=== PATIENT | female | born 1985 | race Two or more races ===

== ENCOUNTER 2016-10-09 08:48 | Emergency (ER) | payer OTHER ==
[2016-10-09] MEDS ORDERED: oxyCODONE 5 MG TABLET PO STA (08:57)
[2016-10-09] MEDS ORDERED: oxyCODONE 5 MG TABLET ONE (09:04)
== END 2016-10-09 11:32 | disposition home or self-care (01) ==
DX: O26.891 Other specified pregnancy related conditions, first trimester (principal); R10.32 Left lower quadrant pain; O09.291 Supervision of pregnancy with other poor reproductive or obstetric history, first trimester; O23.11 Infections of bladder in pregnancy, first trimester; Z3A.08 8 weeks gestation of pregnancy; O34.11 Maternal care for benign tumor of corpus uteri, first trimester; D25.9 Leiomyoma of uterus, unspecified
CPT/HCPCS: 36415; 76801; 76830; 81001; 84702; 86900; 86901; 87077; 87086; 87181; 99283; 99284; A9270

== ENCOUNTER 2017-10-18 00:14 | Emergency (ER) | payer OTHER ==
[2017-10-18 00:25] VITALS: BP 129/82
--- NOTE | 2017-10-18 00:29 | ED Physician Documentation ---
PD HPI SKIN - Stated complaint Stated Complaint: ALLERGIC REACTION - Chief complaint Chief Complaint: Wound - History obtained from History obtained from: Patient - History of Present Illness Timing - onset: Yesterday Timing - duration: Days (1) Timing - details: Abrupt onset, Still present Location: RUE (outer deltoid area. She got injection 2 days ago in afternoon and noted redness with local swelling the next morning, and this has persisted with slight increase.) Quality / character: Itchy, Painful (tender), Discolored (red) Associated symptoms: No: Fever, Myalgias Contributing factors: Other (got flu shot in that site) Similar symptoms before: Has not had sx before Review of Systems Constitutional: denies: Fever, Chills Nose: denies: Rhinorrhea / runny nose, Congestion Throat: denies: Oral lesions / sores, Sore throat, Swollen tonsils Respiratory: denies: Dyspnea, Wheezing GI: denies: Nausea, Vomiting PD PAST MEDICAL HISTORY - Past Medical History Past Medical History: No - Past Surgical History Past Surgical History: No - Present Medications Home Medications: Ambulatory Orders Medication Instructions Recorded Confirmed Pnv95/Ferrous Fumarate/FA 1 tab PO DAILY 10/09/16 10/18/17 [ Tablet] Dexamethasone [Decadron] 4 mg PO DAILY #5 tablet 10/18/17 - Allergies Allergies/Adverse Reactions: Allergies Allergy/AdvReac Type Severity Reaction Status Date / Time No Known Drug Allergies Allergy Verified 10/18/17 00:25 - Social History Does the pt smoke?: No Smoking Status: Never smoker Does the pt drink ETOH?: No Does the pt have substance abuse?: No - Immunizations Immunizations are current?: Yes - POLST Patient has POLST: No PD ED PE NORMAL - Vitals Vital signs reviewed: Yes - General General: Alert and oriented X 3, No acute distress, Well developed/nourished - HEENT HEENT: Pharynx benign - Neck Neck: Supple, no meningeal sign, No adenopathy - Cardiac Cardiac: RRR, No murmur - Respiratory Respiratory: Clear bilaterally - Abdomen Abdomen: Soft, Non tender - Derm Derm: Normal color, Warm and dry, Other (right lateral deoltoid area with circular demarcated area of redness with firm induration but no fluctuance. No drainage. No axillary nodes. ) - Neuro Neuro: Alert and oriented X 3, No motor deficit, Normal speech Results - Vitals Vitals: Vital Signs - 24 hr 10/18/17 00:15 Temperature 36.4 C L Heart Rate 90 Respiratory 16 Rate Blood Pressure 129/82 H O2 Saturation 99 Oxygen O2 Source Room air PD MEDICAL DECISION MAKING - ED course Complexity details: considered differential (inflammatory response versus local allergy. Too early for infection but told her to watch for progression. ), d/w patient Departure - Departure Disposition: 01 Home, Self Care Clinical Impression: Allergic reaction Qualifiers: Encounter type: initial encounter Qualified Code(s): T78.40XA - Allergy, unspecified, initial encounter Condition: Stable Record reviewed to determine appropriate education?: Yes Instructions: ED Allergic Reaction Local Other Follow-Up: Colin Boucher MD [Primary Care Provider] - Prescriptions: Dexamethasone [Decadron] 4 mg PO DAILY #5 tablet Comments: Presumably this is a local allergic reaction to the injection. Use cetirizine daily for a week. Decadron steroid daily for the next 5 days. He can use Benadryl short term if needed for itchiness. This may last for several days since it is long-acting medication that was injected. Recheck if not improving over the next 3 or 4 days. If this is just a local irritation, perhaps some bruising, then it may become more bruised in appearance and would suggest not an allergic reaction but just local inflammation. That would be better because and means it was not the medicine itself. If the redness keeps expanding and becomes irregular shaped or streaking away, then that could suggest infection. It would be rather early for an infection at this point so it would be unlikely right now. Discharge Date/Time: 10/18/17 01:21
[2017-10-18] MEDS ORDERED: CETIRIZINE 10 MG TABLET PO STA (00:59)
[2017-10-18] MEDS ORDERED: DEXAMETHASONE 10 MG/ML VIAL PO STA (00:59)
== END 2017-10-18 01:21 | disposition home or self-care (01) ==
LOC: ED 00:14
DX: T78.40XA Allergy, unspecified, initial encounter (principal); X58.XXXA Exposure to other specified factors, initial encounter
CPT/HCPCS: 99283; A9270